=== PATIENT | male | born 1960 | race Caucasian/White ===

== ENCOUNTER 2018-03-12 10:46 | Inpatient (IN) | payer SELFPAY ==
[~2018-03-12] VITALS: Ht 170.2 cm; Wt 124.7 kg
[2018-03-12] MEDS ORDERED: ASPIRIN CHEWABLE 81 MG TABLET. PO ONE (11:00)
--- NOTE | 2018-03-12 11:12 | PHYS DOC ---
Adult General Chief Complaint Chief Complaint: CHEST PAIN HPI HPI Patient is a 57 year old male with a history of diabetes and hypertension presents to the ED complaining of left-sided chest pain 30 minutes ago. Patient is a sales and marketing manager and states he started to have left chest pain that radiated down his left arm. Describes pain as sharp. Rates the pain as 6 out of 10. States the pain comes and goes. Denies shortness of breath, headache, syncope, vision changes, abdominal pain, diarrhea or nausea/vomiting. Review of Systems Review of Systems Constitutional: Denies fever or chills [] Eyes: Denies change in visual acuity, redness, or eye pain [] HENT: Denies nasal congestion or sore throat [] Respiratory: Denies cough or shortness of breath [] Cardiovascular: No additional information not addressed in HPI [] GI: Denies abdominal pain, nausea, vomiting, bloody stools or diarrhea [] : Denies dysuria or hematuria [] Musculoskeletal: Denies back pain or joint pain [] Integument: Denies rash or skin lesions [] Neurologic: Denies headache, focal weakness or sensory changes [] All other systems were reviewed and found to be within normal limits, except as documented in this note. Current Medications Current Medications Current Medications Medications (Trade) Dose Ordered Sig/Genaro Start Time Stop Time Status Last Admin Dose Admin Acetaminophen (Tylenol) 650 mg PRN Q4HRS PRN 03/12/18 14:00 03/13/18 13:59 Aspirin (Children'S Aspirin) 324 mg 1X ONCE 03/12/18 11:00 03/12/18 11:17 DC 03/12/18 11:48 324 MG Fentanyl Citrate (Fentanyl 2ml Vial) 50 mcg PRN Q1HR PRN 03/12/18 14:00 03/13/18 13:59 Info (CONTRAST GIVEN -- Rx MONITORING) 1 each PRN DAILY PRN 03/12/18 14:15 03/14/18 14:14 Iohexol (Omnipaque 300 Mg/ml) 75 ml 1X ONCE 03/12/18 14:00 03/12/18 14:04 DC 03/12/18 14:00 75 ML Morphine Sulfate (Morphine Sulfate) 4 mg 1X ONCE 03/12/18 12:00 03/12/18 12:01 DC 03/12/18 11:59 4 MG Ondansetron HCl (Zofran) 4 mg PRN Q8HRS PRN 03/12/18 14:00 03/13/18 13:59 Sodium Chloride 1,000 ml @ 1,000 mls/hr 1X ONCE 03/12/18 13:45 03/12/18 14:44 DC 03/12/18 15:22 1,000 MLS/HR Allergies Allergies Allergies Coded Allergies Type Severity Reaction Last Updated Verified No Known Drug Allergies 03/12/18 No Physical Exam Physical Exam Constitutional: Well developed, well nourished, no acute distress, non-toxic appearance. [] HENT: Normocephalic, atraumatic, oropharynx moist Eyes: PERRLA, EOMI, conjunctiva normal, no discharge. [] Neck: Normal range of motion, no tenderness, supple, no stridor. [] Cardiovascular:Heart rate regular rhythm, no murmur [] Lungs & Thorax: Bilateral breath sounds clear to auscultation [] Abdomen: Bowel sounds normal, soft, no tenderness, no masses, no pulsatile masses. [] Skin: Warm, dry, no erythema, no rash. [] Back: No tenderness, no CVA tenderness. [] Extremities: No tenderness, no cyanosis, no clubbing, ROM intact, no edema. [] Neurologic: Alert and oriented X 3, normal motor function, normal sensory function, no focal deficits noted. [] Psychologic: Affect normal, judgement normal, mood normal. [] Current Patient Data Vital Signs Vital Signs Date Time Temp Pulse Resp B/P (MAP) Pulse Ox O2 Delivery O2 Flow Rate FiO2 03/12/18 14:15 84 18 123/74 (90) 94 Room Air 03/12/18 10:46 98.3 98.3 Lab Values Laboratory Tests Test 03/12/18 11:00 White Blood Count 7.4 x10^3/uL (4.0-11.0) Red Blood Count 5.10 x10^6/uL (4.30-5.70) Hemoglobin 15.0 g/dL (13.0-17.5) Hematocrit 43.3 % (39.0-53.0) Mean Corpuscular Volume 85 fL (79-100) Mean Corpuscular Hemoglobin 30 pg (25-35) Mean Corpuscular Hemoglobin Concent 35 g/dL (31-37) Red Cell Distribution Width 14.3 % (11.5-14.5) Platelet Count 245 x10^3/uL (140-400) Neutrophils (%) (Auto) 56 % (31-73) Lymphocytes (%) (Auto) 34 % (24-48) Monocytes (%) (Auto) 9 % (0-9) Eosinophils (%) (Auto) 1 % (0-3) Basophils (%) (Auto) 1 % (0-3) Neutrophils # (Auto) 4.2 x10^3uL (1.8-7.7) Lymphocytes # (Auto) 2.5 x10^3/uL (1.0-4.8) Monocytes # (Auto) 0.6 x10^3/uL (0.0-1.1) Eosinophils # (Auto) 0.1 x10^3/uL (0.0-0.7) Basophils # (Auto) 0.0 x10^3/uL (0.0-0.2) Sodium Level 141 mmol/L (136-145) Potassium Level 4.1 mmol/L (3.5-5.1) Chloride Level 103 mmol/L (98-107) Carbon Dioxide Level 26 mmol/L (21-32) Anion Gap 12 (6-14) Blood Urea Nitrogen 13 mg/dL (8-26) Creatinine 0.7 mg/dL (0.7-1.3) Estimated GFR (Cockcroft-Gault) 116.7 BUN/Creatinine Ratio 19 (6-20) Glucose Level 178 mg/dL (70-99) H Calcium Level 9.9 mg/dL (8.5-10.1) Total Bilirubin 1.1 mg/dL (0.2-1.0) H Aspartate Amino Transferase (AST) 20 U/L (15-37) Alanine Aminotransferase (ALT) 37 U/L (16-63) Alkaline Phosphatase 55 U/L (46-116) Troponin I Quantitative < 0.017 ng/mL (0.000-0.055) Total Protein 7.3 g/dL (6.4-8.2) Albumin 4.2 g/dL (3.4-5.0) Albumin/Globulin Ratio 1.4 (1.0-1.7) Lipase 2121 U/L (73-393) H Laboratory Tests 03/12/18 11:00 Laboratory Tests 03/12/18 11:00 EKG EKG []EKG shows Sinus Rhythm at 87 BPM. No STEMI. Radiology/Procedures Radiology/Procedures CT ABD PELV W/ IV CONTRST ONLY Indication: UPPER ABD PAIN, [id number] 75ML, NO PRIORS Exposure: One or more of the following individualized dose reduction techniques were utilized for this examination: 1. Automated exposure control 2. Adjustment of the mA and/or kV according to patient size 3. Use of iterative reconstruction technique. Comparison: None are available. Contrast: Intravenous contrast was given. No oral contrast per request. FINDINGS: Lower thorax: Small noncalcified nodule right lung base measures 4 mm. Liver: Unremarkable Spleen: Unremarkable Pancreas: Unremarkable Adrenals: Small calcification of the right adrenal. No mass. Kidneys: No obvious mass. Minimal stranding within the perinephric fat bilaterally. Urinary tracts: No hydronephrosis. Gallbladder: No calcified stone Lymph nodes: No significant enlargement Vessels: * Aorta: Mildly calcified, no aneurysm. * Major aortic branches: Grossly patent. * Portal venous: Patent GI tract: No evidence of bowel obstruction. Colonic diverticulosis is identified. No evidence of acute colitis. Appendix is normal. Reproductive organs:No evidence of mass. Urinary bladder: Distended with urine, measuring 17 cm Peritoneum: No evidence of pneumoperitoneum. No free fluid. Abdominal wall:Unremarkable Spine: Mild degenerative spondylosis. At least mild multilevel spinal canal narrowing, may be a congenital component contributing. Bones: Enthesophytes identified about the skeletal pelvis. IMPRESSION: 1. Urinary bladder distention. 2. Small 4 mm noncalcified pulmonary nodule in the right lung base, as per Fleischner Society recommendations no follow-up is necessary if low risk, but consider follow-up CT chest in 12 months if high risk. 3. Degenerative spondylosis with stenosis. 4. Minimal perinephric stranding, can be associated with mild inflammation versus chronic medical renal disease. The kidneys themselves appear intrinsically unremarkable.[] PROCEDURE: PORTABLE CHEST 1V Examination: PORTABLE CHEST 1V History: CHEST PAIN X TODAY Comparison/Correlation: None Findings: Portable frontal view chest was obtained. Heart size and pulmonary vasculature are normal. No infiltrate or pleural effusion. Minimal left basilar atelectasis or scarring may present. No pneumothorax. Pulmonary hyperinflation noted. Somewhat advanced acromioclavicular joint degenerative change region noted. Impression: Pulmonary hyperinflation suggestive of COPD. No definite infiltrate. Course & Med Decision Making Course & Med Decision Making Pertinent Labs and Imaging studies reviewed. (See chart for details) []Discussed case with patients PCP, Dr. Be. Requests CT of abdomen. Agrees to admission and further management of patient. Patient stable for admission. Dragon Disclaimer Dragon Disclaimer This electronic medical record was generated, in whole or in part, using a voice recognition dictation system. Departure Departure Impression: Primary Impression: Chest pain Additional Impression: Elevated lipase Disposition: ADMITTED INPATIENT Admitting Physician: Sincere Be Condition: STABLE Problem Qualifiers GAUDENCIO CAPELLAN Mar 12, 2018 11:12
[2018-03-12 11:16] LABS: BASO % 1 % (0-3); EOS # 0.1 x10^3/uL (0.0-0.7); EOS % 1 % (0-3); HEMATOCRIT 43.3 % (39.0-53.0); LYMPH # 2.5 x10^3/uL (1.0-4.8); LYMPH % 34 % (24-48); MEAN CORPUSCULAR HEMOGLOBIN 30 pg (25-35); MEAN CORPUSCULAR HGB CONC 35 g/dL (31-37); MEAN CORPUSCULAR VOLUME 85 fL (79-100); MONO # 0.6 x10^3/uL (0.0-1.1); MONO % 9 % (0-9); NEUT # 4.2 x10^3uL (1.8-7.7); NEUT % 56 % (31-73); PLATELET COUNT 245 x10^3/uL (140-400); RED CELL DISTRIBUTION WIDTH 14.3 % (11.5-14.5); WHITE BLOOD COUNT 7.4 x10^3/uL (4.0-11.0)
--- NOTE | 2018-03-12 11:16 | EKG ---
[facility] [address] [place] [address] Test Date: 2018-03-12 Test Time: 10:53:44 Pat Name: FLETCHER ALBA Department: Room: Gender: M Miner Assistant: : 1960 Requested By: GAUDENCIO CAPELLAN Order Number: [id number] Reading MD: Measurements Intervals [place] Rate: 87 P: 54 WA: 170 QRS: 82 QRSD: 94 T: 36 QT: 314 QTc: 383 Interpretive Statements SINUS RHYTHM LOW LIMB LEAD VOLTAGE QRS(T) CONTOUR ABNORMALITY CONSISTENT WITH ANTEROSEPTAL INFARCT PROBABLY OLD ABNORMAL ECG RI6.01 No previous ECG available for comparison
[2018-03-12 11:28] LABS: CALCIUM 9.9 mg/dL (8.5-10.1); CREATININE 0.7 mg/dL (0.7-1.3); GFR 116.7; POTASSIUM 4.1 mmol/L (3.5-5.1)
[2018-03-12 11:35] LABS: ALBUMIN 4.2 g/dL (3.4-5.0); ALBUMIN/GLOBULIN RATIO 1.4 (1.0-1.7); TOTAL BILIRUBIN 1.1 mg/dL (0.2-1.0); TOTAL PROTEIN 7.3 g/dL (6.4-8.2)
[2018-03-12] MEDS ORDERED: ONDANSETRON PF 4 MG/2 ML VIAL. ONE (11:55)
[2018-03-12] MEDS ORDERED: ONDANSETRON PF 4 MG/2 ML VIAL. IV ONE (12:00)
[2018-03-12] MEDS ORDERED: MORPHINE SULFATE 4 MG/ML VIAL. IV ONE (12:00)
--- NOTE | 2018-03-12 12:17 | RAD ---
Examination: PORTABLE CHEST 1V History: CHEST PAIN X TODAY Comparison/Correlation: None Findings: Portable frontal view chest was obtained. Heart size and pulmonary vasculature are normal. No infiltrate or pleural effusion. Minimal left basilar atelectasis or scarring may present. No pneumothorax. Pulmonary hyperinflation noted. Somewhat advanced acromioclavicular joint degenerative change region noted. Impression: Pulmonary hyperinflation suggestive of COPD. No definite infiltrate. Electronically signed by: Cuate Moreira MD (03/12/2018 12:13 PM) [id number]
--- NOTE | 2018-03-12 13:11 | RAD ---
Examination: ABDOMEN LTD History: DX: Eval GB-Nausea and vomiting IMP: patient obese limiting study-fatty and slightly enlarged liver; GB negative; CBD WNL Comparison/Correlation: None Findings: Fatty infiltration of the liver noted. Liver length of 18.9 cm noted. Common bile duct measures 0.3 cm diameter. No evidence of cholelithiasis or findings of cholecystitis. Gallbladder wall thickness is normal. Right kidney measures 10.3 cm x 5 cm x 5.1 cm. No right hydronephrosis. Right renal contour is normal. Inferior vena cava was only partially seen. Partially visualized inferior vena cava is unremarkable at the level of the liver. Portal venous color Doppler flow is normal. No upper abdominal ascites. Proximal pancreas is partially visualized. Pancreas is mostly obscured by bowel gas. Impression: Mild fatty infiltration of the liver. Borderline liver size. Gallbladder is unremarkable with no evidence of cholelithiasis or findings to suggest cholecystitis. Electronically signed by: Cuate Moreira MD (03/12/2018 1:08 PM) [id number]
[2018-03-12] MEDS ORDERED: IV NORMAL SALINE 1000ML BAG 1,000 ML IV ONE (13:45)
[2018-03-12] MEDS ORDERED: IOHEXOL 300 MG/ML 100ML VIAL. IV ONE (14:00)
[2018-03-12] MEDS ORDERED: ONDANSETRON PF 4 MG/2 ML VIAL. IV PRN (14:00)
[2018-03-12] MEDS ORDERED: fentaNYL PF VIAL 100 MCG/2 ML VIAL IV PRN (14:00)
[2018-03-12] MEDS ORDERED: ACETAMINOPHEN 325 MG TABLET. PO PRN (14:00)
[2018-03-12] MEDS ORDERED: CONTRAST GIVEN. MC PRN (14:15)
--- NOTE | 2018-03-12 15:14 | RAD ---
CT ABD PELV W/ IV CONTRST ONLY Indication: UPPER ABD PAIN, [id number] 75ML, NO PRIORS Exposure: One or more of the following individualized dose reduction techniques were utilized for this examination: 1. Automated exposure control 2. Adjustment of the mA and/or kV according to patient size 3. Use of iterative reconstruction technique. Comparison: None are available. Contrast: Intravenous contrast was given. No oral contrast per request. FINDINGS: Lower thorax: Small noncalcified nodule right lung base measures 4 mm. Liver: Unremarkable Spleen: Unremarkable Pancreas: Unremarkable Adrenals: Small calcification of the right adrenal. No mass. Kidneys: No obvious mass. Minimal stranding within the perinephric fat bilaterally. Urinary tracts: No hydronephrosis. Gallbladder: No calcified stone Lymph nodes: No significant enlargement Vessels: * Aorta: Mildly calcified, no aneurysm. * Major aortic branches: Grossly patent. * Portal venous: Patent GI tract: No evidence of bowel obstruction. Colonic diverticulosis is identified. No evidence of acute colitis. Appendix is normal. Reproductive organs:No evidence of mass. Urinary bladder: Distended with urine, measuring 17 cm Peritoneum: No evidence of pneumoperitoneum. No free fluid. Abdominal wall:Unremarkable Spine: Mild degenerative spondylosis. At least mild multilevel spinal canal narrowing, may be a congenital component contributing. Bones: Enthesophytes identified about the skeletal pelvis. IMPRESSION: 1. Urinary bladder distention. 2. Small 4 mm noncalcified pulmonary nodule in the right lung base, as per Fleischner Society recommendations no follow-up is necessary if low risk, but consider follow-up CT chest in 12 months if high risk. 3. Degenerative spondylosis with stenosis. 4. Minimal perinephric stranding, can be associated with mild inflammation versus chronic medical renal disease. The kidneys themselves appear intrinsically unremarkable. Electronically signed by: Yo Dhillon MD (03/12/2018 3:10 PM) [id number]
--- NOTE | 2018-03-12 15:47 | PDOC2 ---
CARDIAC CONSULT DATE OF CONSULT Date of Consult DATE: 03/12/18 TIME: 15:43 REASON FOR CONSULT Reason for Consult: Chest pain REFERRING PHYSICIAN Referring Physician: Britney SOURCE Source: Chart review, Patient HISTORY OF PRESENT ILLNESS HISTORY OF PRESENT ILLNESS This is a pleasant 57 yo male admitted for complains of chest pain. Reports that he drank about 6-12 beers last Sunday but no symptoms associated with that. He did have 1 bout of vomiting and loose stool yesterday Sunday but no further recurrences. Verbalized no exertional CP but does have some SOA with exertion but not significant compared to his baseline. He continues to smoke tobacco and no routine exercises. Today at work he started having sharp piercing pain to left chest. He had some tingling to his left arm and fingers and was SOA and diaphoretic. His symptoms finally got better after he received morphine and 4 baby ASA. He does have DM2, HTN, HLP and compliant with his medications. Reports of no cardiac workup in the past and has never seen a countersinker balance screw hole. Denies routine NSAIDs, recent falls, injury. No prior VTE and denies any arrhythmias or murmur PAST MEDICAL HISTORY Cardiovascular: HTN, Hyperlipidemia Pulmonary: No pertinent hx CENTRAL NERVOUS SYSTEM: Other (No pertinent history) GI: No pertinent hx Heme/Onc: No pertinent hx Psych: No pertinent hx Musculoskeletal: Osteoarthritis, Other (obesity) Infectious disease: No pertinent hx ENT: No pertinent hx Renal/: No pertinent hx Endocrine: Diabetes (2) Dermatology: No pertinent hx PAST SURGICAL HISTORY Past Surgical History: Hernia Repair (ventral) FAMILY HISTORY Family History: Coronary Artery Disease (father and mother in their 50s) SOCIAL HISTORY Smoke: <1 pack per day ALCOHOL: other (weekly binge) Drugs: None Lives: with Family CURRENT MEDICATIONS CURRENT MEDICATIONS Current Medications Medications (Trade) Dose Ordered Sig/Genaro Route PRN Reason Start Time Stop Time Status Last Admin Dose Admin Aspirin (Children'S Aspirin) 324 mg 1X ONCE PO 03/12/18 11:00 03/12/18 11:17 DC 03/12/18 11:48 Morphine Sulfate (Morphine Sulfate) 4 mg 1X ONCE IV 03/12/18 12:00 03/12/18 12:01 DC 03/12/18 11:59 Ondansetron HCl (Zofran) 4 mg 1X ONCE IV 03/12/18 12:00 03/12/18 12:01 DC 03/12/18 11:59 Sodium Chloride 1,000 ml @ 1,000 mls/hr 1X ONCE IV 03/12/18 13:45 03/12/18 14:44 DC 03/12/18 15:22 Iohexol (Omnipaque 300 Mg/ml) 75 ml 1X ONCE IV 03/12/18 14:00 03/12/18 14:04 DC 03/12/18 14:00 ALLERGIES ALLERGIES: Coded Allergies: No Known Drug Allergies (Unverified , 03/12/18) ROS Review of System 14 point ROS evaluated with pertinent positives noted per HPI PHYSICAL EXAM General: Alert, Oriented X3, Cooperative, No acute distress HEENT: Atraumatic, Mucous membr. moist/pink Lungs: Clear to auscultation, Normal air movement Heart: Regular rate (SR) Abdomen: Soft, No tenderness, Other (obses) Extremities: No cyanosis, No edema Skin: No breakdown, No significant lesion Neuro: Normal speech, Sensation intact Psych/Mental Status: Mental status NL, Mood NL MUSCULOSKELETAL: Osteoarthritic changes both hands VITALS VITALS Vital Signs Date Time Temp Pulse Resp B/P (MAP) Pulse Ox O2 Delivery O2 Flow Rate FiO2 03/12/18 15:15 77 18 113/72 (86) 95 Room Air 03/12/18 10:46 98.3 98.3 LABS Lab: Laboratory Tests Test 03/12/18 11:00 White Blood Count 7.4 x10^3/uL (4.0-11.0) Red Blood Count 5.10 x10^6/uL (4.30-5.70) Hemoglobin 15.0 g/dL (13.0-17.5) Hematocrit 43.3 % (39.0-53.0) Mean Corpuscular Volume 85 fL (79-100) Mean Corpuscular Hemoglobin 30 pg (25-35) Mean Corpuscular Hemoglobin Concent 35 g/dL (31-37) Red Cell Distribution Width 14.3 % (11.5-14.5) Platelet Count 245 x10^3/uL (140-400) Neutrophils (%) (Auto) 56 % (31-73) Lymphocytes (%) (Auto) 34 % (24-48) Monocytes (%) (Auto) 9 % (0-9) Eosinophils (%) (Auto) 1 % (0-3) Basophils (%) (Auto) 1 % (0-3) Neutrophils # (Auto) 4.2 x10^3uL (1.8-7.7) Lymphocytes # (Auto) 2.5 x10^3/uL (1.0-4.8) Monocytes # (Auto) 0.6 x10^3/uL (0.0-1.1) Eosinophils # (Auto) 0.1 x10^3/uL (0.0-0.7) Basophils # (Auto) 0.0 x10^3/uL (0.0-0.2) Sodium Level 141 mmol/L (136-145) Potassium Level 4.1 mmol/L (3.5-5.1) Chloride Level 103 mmol/L (98-107) Carbon Dioxide Level 26 mmol/L (21-32) Anion Gap 12 (6-14) Blood Urea Nitrogen 13 mg/dL (8-26) Creatinine 0.7 mg/dL (0.7-1.3) Estimated GFR (Cockcroft-Gault) 116.7 BUN/Creatinine Ratio 19 (6-20) Glucose Level 178 mg/dL (70-99) Calcium Level 9.9 mg/dL (8.5-10.1) Total Bilirubin 1.1 mg/dL (0.2-1.0) Aspartate Amino Transf (AST/SGOT) 20 U/L (15-37) Alanine Aminotransferase (ALT/SGPT) 37 U/L (16-63) Alkaline Phosphatase 55 U/L (46-116) Troponin I Quantitative < 0.017 ng/mL (0.000-0.055) Total Protein 7.3 g/dL (6.4-8.2) Albumin 4.2 g/dL (3.4-5.0) Albumin/Globulin Ratio 1.4 (1.0-1.7) Lipase 2121 U/L (73-393) ASSESSMENT/PLAN ASSESSMENT/PLAN 1. Chest pain: UA features. Initial trop nml. EKG SR with subtle septal changes with poor R wave progression 2. Elevated lipase: 2100s, Per PCP. No organomegaly, GB unremarkable. 3. Undiagnosed COPD with continued tobaccoism: defer to PCP 4. Morbid obesity with suspected BEVERLY 5. Fatty liver disease 6. Binge alcohol use: weekly 6-12 beers in one sitting. Last event Sunday 7. HTN: controlled 8. DM2/HLP 9. Murmur: suspect MR and . Recommendations 1. Trend troponin, TTE. 2. TSH, UA. Lipids in AM. 3. NPO p MN. Ischemic workup tomorrow. Await w/u trend overnight. Discussed with pt. 4. ASA. restart home lipitor. 5. Wt loss. outpt BEVERLY workup, Smoking cessation. Avoid ETOH binging. MANDA DUNCAN POWDERED [employer]GAR SUPERVISOR Mar 12, 2018 15:47
[2018-03-12 16:43] LABS: BILIRUBIN,URINE NEGATIVE (NEG); CLARITY,URINE CLEAR; COLOR,URINE YELLOW; NITRITE,URINE NEGATIVE (NEG); PROTEIN,URINE NEGATIVE (NEG-TRACE); UROBILINOGEN,URINE 0.2 mg/dL (0.2 mg/dL)
[2018-03-12 16:58] LABS: BACTERIA,URINE 0 /HPF (0-FEW); RBC,URINE RARE /HPF (0-2); WBC,URINE 0 /HPF (0-4)
[2018-03-12 19:00] VITALS: BP 125/68
[2018-03-12] MEDS ORDERED: AMLO5TAB7 PO (20:49)
[2018-03-12] MEDS ORDERED: ATOR20TA58 PO (20:49)
[2018-03-12] MEDS ORDERED: AMIT10TA PO (20:49)
[2018-03-12] MEDS ORDERED: METF500T16 PO (20:49)
[2018-03-12] MEDS ORDERED: LISI-334 PO (20:49)
[2018-03-12 23:00] VITALS: BP 119/60
[2018-03-13 03:00] VITALS: BP 116/69
[2018-03-13 05:41] LABS: BASO % 0 % (0-3); EOS # 0.1 x10^3/uL (0.0-0.7); EOS % 2 % (0-3); HEMOGLOBIN 13.9 g/dL (13.0-17.5); LYMPH # 2.5 x10^3/uL (1.0-4.8); LYMPH % 39 % (24-48); MEAN CORPUSCULAR HEMOGLOBIN 29 pg (25-35); MEAN CORPUSCULAR HGB CONC 34 g/dL (31-37); MEAN CORPUSCULAR VOLUME 86 fL (79-100); MONO # 0.6 x10^3/uL (0.0-1.1); MONO % 10 % (0-9); NEUT # 3.1 x10^3uL (1.8-7.7); NEUT % 49 % (31-73); PLATELET COUNT 223 x10^3/uL (140-400); RED BLOOD COUNT 4.77 x10^6/uL (4.30-5.70); RED CELL DISTRIBUTION WIDTH 14.7 % (11.5-14.5); WHITE BLOOD COUNT 6.3 x10^3/uL (4.0-11.0)
[2018-03-13 06:06] LABS: ALBUMIN 3.6 g/dL (3.4-5.0); ALBUMIN/GLOBULIN RATIO 1.2 (1.0-1.7); CALCIUM 8.8 mg/dL (8.5-10.1); CREATININE 0.8 mg/dL (0.7-1.3); MAGNESIUM 1.9 mg/dL (1.8-2.4); POTASSIUM 4.1 mmol/L (3.5-5.1); TOTAL PROTEIN 6.6 g/dL (6.4-8.2)
[2018-03-13 06:07] LABS: CHOLESTEROL/HDL RATIO 3.3
[2018-03-13 07:00] VITALS: BP 132/70
--- NOTE | 2018-03-13 08:16 | PDOC ---
GENERAL General: see dictated H&P. VITAL SIGNS Vital Signs: Vital Signs Date Time Temp Pulse Resp B/P (MAP) Pulse Ox O2 Delivery O2 Flow Rate FiO2 03/13/18 07:00 98.2 68 20 132/70 (90) 91 Room Air 98.2 I & O I & O Intake and Output 03/13/18 07:00 Intake Total 960 ml Balance 960 ml Intake Oral 960 ml # Voids 4 ALLERGIES Allergies: Allergies Coded Allergies Type Severity Reaction Last Updated Verified No Known Drug Allergies 03/12/18 No MEDS Medications: Current Medications Medications (Trade) Dose Ordered Sig/Genaro Start Time Stop Time Status Last Admin Dose Admin Acetaminophen (Tylenol) 650 mg PRN Q4HRS PRN 03/12/18 14:00 03/13/18 13:59 Aspirin (Children'S Aspirin) 324 mg 1X ONCE 03/12/18 11:00 03/12/18 11:17 DC 03/12/18 11:48 324 MG Fentanyl Citrate (Fentanyl 2ml Vial) 50 mcg PRN Q1HR PRN 03/12/18 14:00 03/13/18 13:59 Info (CONTRAST GIVEN -- Rx MONITORING) 1 each PRN DAILY PRN 03/12/18 14:15 03/14/18 14:14 Iohexol (Omnipaque 300 Mg/ml) 75 ml 1X ONCE 03/12/18 14:00 03/12/18 14:04 DC 03/12/18 14:00 75 ML Morphine Sulfate (Morphine Sulfate) 4 mg 1X ONCE 03/12/18 12:00 03/12/18 12:01 DC 03/12/18 11:59 4 MG Ondansetron HCl (Zofran) 4 mg PRN Q8HRS PRN 03/12/18 14:00 03/13/18 13:59 Sodium Chloride 1,000 ml @ 1,000 mls/hr 1X ONCE 03/12/18 13:45 03/12/18 14:44 DC 03/12/18 15:22 1,000 MLS/HR LAB Lab: Laboratory Tests Test 03/12/18 11:00 03/12/18 16:31 03/12/18 17:07 03/12/18 19:30 White Blood Count 7.4 x10^3/uL (4.0-11.0) Red Blood Count 5.10 x10^6/uL (4.30-5.70) Hemoglobin 15.0 g/dL (13.0-17.5) Hematocrit 43.3 % (39.0-53.0) Mean Corpuscular Volume 85 fL (79-100) Mean Corpuscular Hemoglobin 30 pg (25-35) Mean Corpuscular Hemoglobin Concent 35 g/dL (31-37) Red Cell Distribution Width 14.3 % (11.5-14.5) Platelet Count 245 x10^3/uL (140-400) Neutrophils (%) (Auto) 56 % (31-73) Lymphocytes (%) (Auto) 34 % (24-48) Monocytes (%) (Auto) 9 % (0-9) Eosinophils (%) (Auto) 1 % (0-3) Basophils (%) (Auto) 1 % (0-3) Neutrophils # (Auto) 4.2 x10^3uL (1.8-7.7) Lymphocytes # (Auto) 2.5 x10^3/uL (1.0-4.8) Monocytes # (Auto) 0.6 x10^3/uL (0.0-1.1) Eosinophils # (Auto) 0.1 x10^3/uL (0.0-0.7) Basophils # (Auto) 0.0 x10^3/uL (0.0-0.2) Sodium Level 141 mmol/L (136-145) Potassium Level 4.1 mmol/L (3.5-5.1) Chloride Level 103 mmol/L (98-107) Carbon Dioxide Level 26 mmol/L (21-32) Anion Gap 12 (6-14) Blood Urea Nitrogen 13 mg/dL (8-26) Creatinine 0.7 mg/dL (0.7-1.3) Estimated GFR (Cockcroft-Gault) 116.7 BUN/Creatinine Ratio 19 (6-20) Glucose Level 178 mg/dL (70-99) Calcium Level 9.9 mg/dL (8.5-10.1) Total Bilirubin 1.1 mg/dL (0.2-1.0) Aspartate Amino Transf (AST/SGOT) 20 U/L (15-37) Alanine Aminotransferase (ALT/SGPT) 37 U/L (16-63) Alkaline Phosphatase 55 U/L (46-116) Troponin I Quantitative < 0.017 ng/mL (0.000-0.055) < 0.017 ng/mL (0.000-0.055) Total Protein 7.3 g/dL (6.4-8.2) Albumin 4.2 g/dL (3.4-5.0) Albumin/Globulin Ratio 1.4 (1.0-1.7) Lipase 2121 U/L (73-393) Thyroid Stimulating Hormone (TSH) 4.228 uIU/mL (0.358-3.74) Urine Collection Type Unknown Urine Color Yellow Urine Clarity Clear Urine pH 5.0 Urine Specific [place] >=1.030 Urine Protein Negative mg/dL (NEG-TRACE) Urine Glucose (UA) Negative mg/dL (NEG) Urine Ketones (Stick) Negative mg/dL (NEG) Urine Blood Negative (NEG) Urine Nitrite Negative (NEG) Urine Bilirubin Negative (NEG) Urine Urobilinogen Dipstick 0.2 mg/dL (0.2 mg/dL) Urine Leukocyte Esterase Negative (NEG) Urine RBC Rare /HPF (0-2) Urine WBC 0 /HPF (0-4) Urine Bacteria 0 /HPF (0-FEW) Glucose (Fingerstick) 107 mg/dL (70-99) Test 03/12/18 20:42 03/13/18 05:10 03/13/18 07:00 Glucose (Fingerstick) 246 mg/dL (70-99) 185 mg/dL (70-99) White Blood Count 6.3 x10^3/uL (4.0-11.0) Red Blood Count 4.77 x10^6/uL (4.30-5.70) Hemoglobin 13.9 g/dL (13.0-17.5) Hematocrit 41.0 % (39.0-53.0) Mean Corpuscular Volume 86 fL (79-100) Mean Corpuscular Hemoglobin 29 pg (25-35) Mean Corpuscular Hemoglobin Concent 34 g/dL (31-37) Red Cell Distribution Width 14.7 % (11.5-14.5) Platelet Count 223 x10^3/uL (140-400) Neutrophils (%) (Auto) 49 % (31-73) Lymphocytes (%) (Auto) 39 % (24-48) Monocytes (%) (Auto) 10 % (0-9) Eosinophils (%) (Auto) 2 % (0-3) Basophils (%) (Auto) 0 % (0-3) Neutrophils # (Auto) 3.1 x10^3uL (1.8-7.7) Lymphocytes # (Auto) 2.5 x10^3/uL (1.0-4.8) Monocytes # (Auto) 0.6 x10^3/uL (0.0-1.1) Eosinophils # (Auto) 0.1 x10^3/uL (0.0-0.7) Basophils # (Auto) 0.0 x10^3/uL (0.0-0.2) Sodium Level 142 mmol/L (136-145) Potassium Level 4.1 mmol/L (3.5-5.1) Chloride Level 104 mmol/L (98-107) Carbon Dioxide Level 29 mmol/L (21-32) Anion Gap 9 (6-14) Blood Urea Nitrogen 12 mg/dL (8-26) Creatinine 0.8 mg/dL (0.7-1.3) Estimated GFR (Cockcroft-Gault) 100.0 BUN/Creatinine Ratio 15 (6-20) Glucose Level 154 mg/dL (70-99) Calcium Level 8.8 mg/dL (8.5-10.1) Magnesium Level 1.9 mg/dL (1.8-2.4) Total Bilirubin 1.0 mg/dL (0.2-1.0) Aspartate Amino Transf (AST/SGOT) 17 U/L (15-37) Alanine Aminotransferase (ALT/SGPT) 35 U/L (16-63) Alkaline Phosphatase 51 U/L (46-116) Troponin I Quantitative < 0.017 ng/mL (0.000-0.055) Total Protein 6.6 g/dL (6.4-8.2) Albumin 3.6 g/dL (3.4-5.0) Albumin/Globulin Ratio 1.2 (1.0-1.7) Triglycerides Level 72 mg/dL (0-150) Cholesterol Level 140 mg/dL (0-200) LDL Cholesterol, Calculated 84 mg/dL (0-100) VLDL Cholesterol, Calculated 14 mg/dL (0-40) Non-HDL Cholesterol Calculated 98 mg/dL (0-129) HDL Cholesterol 42 mg/dL (40-60) Cholesterol/HDL Ratio 3.3 Lipase 1407 U/L (73-393) BELINDA NELSON MD Mar 13, 2018 08:16
[2018-03-13] MEDS ORDERED: LISINOPRIL 20 MG TABLET PO SCH (09:00)
[2018-03-13] MEDS ORDERED: amLODIPine BESYLATE 5 MG TABLET PO SCH (09:00)
--- NOTE | 2018-03-13 09:24 | CARD ---
MR#: [id number] Date of Study: 03/13/2018 Ordering Physician: MANDA DUNCAN, Referring Physician: BELINDA NELSON Tech: Priscila Hill [facility] APPROVED REPORT EXAM: Two-dimensional and M-mode echocardiogram with Doppler and color Doppler. Other Information Quality : Technically LimitedHR: 74bpm Rhythm : NSRTechnically limited study due to body habitus and smoking. INDICATION Chest Pain 2D DIMENSIONS RVDd2.7 (2.9-3.5cm)IVSd1.2 (0.7-1.1cm) Aortic Root(2D)3.3 (2.0-3.7cm)LVDd5.4 (3.9-5.9cm) LVOT Diameter2.0 (1.8-2.4cm)PWd1.2 (0.7-1.1cm) LVDs3.5 (2.5-4.0cm)FS (%) 35.9 % SV92.2 mlLVEF(%)64.9 (>50%) M-Mode DIMENSIONS Left Atrium(MM)4.12 (2.5-4.0cm)Aortic Root3.12 (2.2-3.7cm) Aortic Valve AoV Peak Kennedy.221.0cm/sAoV VTI46.7cm AO Peak GR.19.0mmHgLVOT Peak Kennedy.134.4cm/s LVOT VTI 30.09cmAO Mean GR.12mmHg JOE (VMAX)1.54bf4EUY (VTI)2.05cm2 Mitral Valve MV E Daoivzaw84.2cm/sMV DECEL [id number] MV A Nycpxyyt18.2cm/sMV UAK62fs E/A Ratio1.2MVA (PHT)3.03cm2 TDI E/Lateral E'9.8E/Medial E'9.6 Pulmonary Valve PV Peak Jenojrab87.0cm/sPV Peak Grad.3mmHg Tricuspid Valve TR P. Azrcject273nv/sRAP NHTFINME1xqTb TR Peak Gr.49jdRkMYTR61veCd LEFT VENTRICLE The left ventricle is normal size. There is mild concentric left ventricular hypertrophy. The left ve ntricular systolic function is normal. The Ejection Fraction is 55-60%. There is normal LV segmental wall motion. The left ventricular diastolic function and filling is normal for age. RIGHT VENTRICLE The right ventricle is normal size. There is normal right ventricular wall thickness. The right ventr icular systolic function is normal. ATRIA The left atrium is mildly dilated. The right atrium is mildly dilated. The interatrial septum is inta ct with no evidence for an atrial septal defect or patent foramen ovale as noted on 2-D or Doppler im aging. AORTIC VALVE The aortic valve is mildly thickened. The aortic valve is probably trileaflet. Doppler and Color Flow revealed no significant aortic regurgitation. There is mild valvular aortic stenosis. MITRAL VALVE The mitral valve is normal in structure and function. There is no evidence of mitral valve prolapse. There is no mitral valve stenosis. Doppler and Color Flow revealed no mitral valve regurgitation note d. TRICUSPID VALVE The tricuspid valve is normal in structure and function. Doppler and Color Flow revealed trace tricus pid regurgitation. The PA pressure was estimated at 27 mmHg. There is no tricuspid valve prolapse or vegetation. There is no tricuspid valve stenosis. PULMONIC VALVE The pulmonary valve is normal in structure and function. Doppler and Color Flow revealed no pulmonic valvular regurgitation. There is no pulmonic valvular stenosis. GREAT VESSELS The aortic root is normal in size. The ascending aorta is normal in size. PERICARDIAL EFFUSION There is no evidence of significant pericardial effusion. Critical Notification Critical Value: No <Conclusion> Technically difficult study. The left ventricular systolic function is normal. The Ejection Fraction is 55-60%. There is normal LV segmental wall motion. Doppler and Color Flow revealed trace tricuspid regurgitation. The PA pressure was estimated at 27 mmHg. There is no evidence of significant pericardial effusion. Signed by : Solitario Cordero, Electronically Approved : 03/13/2018 09:23:46
[2018-03-13] MEDS ORDERED: REGADENOSON 0.4 MG/5 ML DISP.SYRIN. IV ONE (10:00)
--- NOTE | 2018-03-13 10:27 | HP ---
ADMIT DATE: 03/12/2018 CHIEF COMPLAINT AND HISTORY OF PRESENT ILLNESS: This 57-year-old white male is well known to me. The patient had sudden onset of left-sided chest pain in his upper lateral chest and axillary area on the day of admission while at work. He became diaphoretic and short of breath with it. It lasted up to an hour and was relieved by aspirin and morphine. He does have a strong family history of atherosclerotic heart disease as well as ongoing diabetes and hypertension. He was admitted to rule out, incidentally he was found to have lipase level over 2000. Although his history is not exactly consistent with pancreatitis and imaging done in the Emergency Room reveals a normal-looking pancreas and no evidence of cholelithiasis, his only risk factor for pancreatitis would be that of drinking which he does rarely often going 2-3 weeks between times, but did have 10-12 beers on Sunday night prior to this. PAST MEDICAL HISTORY: Remarkable for diabetes, hypertension, hyperlipidemia. MEDICATIONS: Brought with the patient, listed on the computer and have been addressed. ALLERGIES: He has no known drug allergies. SOCIAL HISTORY: He is a smoker. Again, drinking history is that as above. Does not abuse drugs. FAMILY HISTORY: Strongly positive for atherosclerotic heart disease and diabetes. REVIEW OF SYSTEMS: As mentioned above. PHYSICAL EXAMINATION: GENERAL: He is a well-developed, well-nourished white male in no acute distress by the time of my examination. VITAL SIGNS: Stable. He is afebrile. HEENT: Unremarkable. NECK: Supple, without any thyromegaly. CHEST: Clear to auscultation and percussion. HEART: Regular rate and rhythm without S3, S4 or murmur. There is no chest wall tenderness present. ABDOMEN: Soft, nontender, without hepatosplenomegaly or masses, which is certainly not consistent with his elevated lipase on admission if it were coming from pancreatic source. EXTREMITIES: Without cyanosis, clubbing, edema. NEUROLOGIC: He is intact. Troponin x 2 are negative since admission. Sugars have been anywhere from 107 to 246 since admission. Lipase on admission was 2121, it is 1407 this morning and per his history did receive fluid yesterday. Cardiology has seen him and planning on stress testing this morning, which I agree with. PLAN: We will follow lipase, make him n.p.o. At least for now I am going to ask GI for opinion on this also as I do not believe this is pancreatitis. He should have stress testing today. Otherwise, his regular home meds will be reinstituted and the patient will be monitored, managed and treated appropriately. BELINDA NELSON MD DR: EMMA/tea JOB#: [id number] / [id number]
[2018-03-13 10:55] VITALS: BP 141/73
--- NOTE | 2018-03-13 11:07 | PDOC2 ---
GI CONSULT Reason For Consult: Elevated lipase HPI: HPI: 57 y/o male admitted through ER yesterday w/ chest pain, currently undergoing stress test w/ cardiology. Pain has resolved, but was sharp and left-sided, began at rest, and was associated w/ some SOA. Was found w/ elevated lipase 2120 (now 1407) and we were asked to see for same. Pancreas was unremarkable on CT A/P and GB was normal on US. H/o heavy drinking - used to be daily, now 10-12 beers in one night every 1-2 weeks. Occasional heartburn - was more severe 1-2 years ago, now just takes Tums PRN with improvement. No dysphagia. No n/v. No abd pain. No diarrhea or constipation. Trying to eat more vegetables and has lost 7 pounds intentionally in 8 weeks. No hematochezia or melena. Appetite stable. No previous EGD or colonoscopy. No GB, liver, or pancreas history. PMH: PMH: HTN, HLD, headaches, OA, DM, GERD, fatty liver, ventral hernia repair, vasectomy FH: Family History: Other (grandmother had "colon removed," aunt had pancreatitis) Social History: Smoke: <1 pack per day ALCOHOL: heavy (10-12 beers every 1-2 weeks, used to drink daily/more heavily) Drugs: Other (marijuana and cocaine in the past) ROS: GEN: Denies fevers, chills, sweats HEENT: Denies blurred vision, sore throat CV: +chest pain (resolved) RESP: Denies shortness of air, cough GI: Per HPI : Denies hematuria, dysuria ENDO: +intentional weight loss NEURO: Denies confusion, dizziness MSK: Denies weakness, joint pain/swelling SKIN: Denies jaundice, pruritus Vitals: Vitals: Vital Signs Date Time Temp Pulse Resp B/P (MAP) Pulse Ox O2 Delivery O2 Flow Rate FiO2 03/13/18 10:55 97.8 100 20 141/73 (95) 96 Room Air 97.8 Labs: Labs: Laboratory Tests Test 03/12/18 16:31 03/12/18 17:07 03/12/18 19:30 03/12/18 20:42 Urine Collection Type Unknown Urine Color Yellow Urine Clarity Clear Urine pH 5.0 Urine Specific [place] >=1.030 Urine Protein Negative mg/dL (NEG-TRACE) Urine Glucose (UA) Negative mg/dL (NEG) Urine Ketones (Stick) Negative mg/dL (NEG) Urine Blood Negative (NEG) Urine Nitrite Negative (NEG) Urine Bilirubin Negative (NEG) Urine Urobilinogen Dipstick 0.2 mg/dL (0.2 mg/dL) Urine Leukocyte Esterase Negative (NEG) Urine RBC Rare /HPF (0-2) Urine WBC 0 /HPF (0-4) Urine Bacteria 0 /HPF (0-FEW) Glucose (Fingerstick) 107 mg/dL (70-99) 246 mg/dL (70-99) Troponin I Quantitative < 0.017 ng/mL (0.000-0.055) Test 03/13/18 05:10 03/13/18 07:00 White Blood Count 6.3 x10^3/uL (4.0-11.0) Red Blood Count 4.77 x10^6/uL (4.30-5.70) Hemoglobin 13.9 g/dL (13.0-17.5) Hematocrit 41.0 % (39.0-53.0) Mean Corpuscular Volume 86 fL (79-100) Mean Corpuscular Hemoglobin 29 pg (25-35) Mean Corpuscular Hemoglobin Concent 34 g/dL (31-37) Red Cell Distribution Width 14.7 % (11.5-14.5) Platelet Count 223 x10^3/uL (140-400) Neutrophils (%) (Auto) 49 % (31-73) Lymphocytes (%) (Auto) 39 % (24-48) Monocytes (%) (Auto) 10 % (0-9) Eosinophils (%) (Auto) 2 % (0-3) Basophils (%) (Auto) 0 % (0-3) Neutrophils # (Auto) 3.1 x10^3uL (1.8-7.7) Lymphocytes # (Auto) 2.5 x10^3/uL (1.0-4.8) Monocytes # (Auto) 0.6 x10^3/uL (0.0-1.1) Eosinophils # (Auto) 0.1 x10^3/uL (0.0-0.7) Basophils # (Auto) 0.0 x10^3/uL (0.0-0.2) Sodium Level 142 mmol/L (136-145) Potassium Level 4.1 mmol/L (3.5-5.1) Chloride Level 104 mmol/L (98-107) Carbon Dioxide Level 29 mmol/L (21-32) Anion Gap 9 (6-14) Blood Urea Nitrogen 12 mg/dL (8-26) Creatinine 0.8 mg/dL (0.7-1.3) Estimated GFR (Cockcroft-Gault) 100.0 BUN/Creatinine Ratio 15 (6-20) Glucose Level 154 mg/dL (70-99) Calcium Level 8.8 mg/dL (8.5-10.1) Magnesium Level 1.9 mg/dL (1.8-2.4) Total Bilirubin 1.0 mg/dL (0.2-1.0) Aspartate Amino Transf (AST/SGOT) 17 U/L (15-37) Alanine Aminotransferase (ALT/SGPT) 35 U/L (16-63) Alkaline Phosphatase 51 U/L (46-116) Troponin I Quantitative < 0.017 ng/mL (0.000-0.055) Total Protein 6.6 g/dL (6.4-8.2) Albumin 3.6 g/dL (3.4-5.0) Albumin/Globulin Ratio 1.2 (1.0-1.7) Triglycerides Level 72 mg/dL (0-150) Cholesterol Level 140 mg/dL (0-200) LDL Cholesterol, Calculated 84 mg/dL (0-100) VLDL Cholesterol, Calculated 14 mg/dL (0-40) Non-HDL Cholesterol Calculated 98 mg/dL (0-129) HDL Cholesterol 42 mg/dL (40-60) Cholesterol/HDL Ratio 3.3 Lipase 1407 U/L (73-393) Glucose (Fingerstick) 185 mg/dL (70-99) Allergies: Coded Allergies: No Known Drug Allergies (Unverified , 03/12/18) Medications: Current Medications Medications (Trade) Dose Ordered Sig/Genaro Route PRN Reason Start Time Stop Time Status Last Admin Dose Admin Aspirin (Children'S Aspirin) 324 mg 1X ONCE PO 03/12/18 11:00 03/12/18 11:17 DC 03/12/18 11:48 Morphine Sulfate (Morphine Sulfate) 4 mg 1X ONCE IV 03/12/18 12:00 03/12/18 12:01 DC 03/12/18 11:59 Ondansetron HCl (Zofran) 4 mg 1X ONCE IV 03/12/18 12:00 03/12/18 12:01 DC 03/12/18 11:59 Sodium Chloride 1,000 ml @ 1,000 mls/hr 1X ONCE IV 03/12/18 13:45 03/12/18 14:44 DC 03/12/18 15:22 Acetaminophen (Tylenol) 650 mg PRN Q4HRS PRN PO FEVER 03/12/18 14:00 03/13/18 13:59 03/13/18 09:16 Iohexol (Omnipaque 300 Mg/ml) 75 ml 1X ONCE IV 03/12/18 14:00 03/12/18 14:04 DC 03/12/18 14:00 Amlodipine Besylate (Norvasc) 5 mg DAILY PO 03/13/18 09:00 03/13/18 09:13 Lisinopril (Prinivil) 20 mg DAILY PO 03/13/18 09:00 03/13/18 09:14 Regadenoson (Lexiscan) 0.4 mg 1X ONCE IV 03/13/18 10:00 03/13/18 10:01 DC 03/13/18 09:50 Imaging: Imaging: CXR Impression: Pulmonary hyperinflation suggestive of COPD. No definite infiltrate. RUQ US Impression: Mild fatty infiltration of the liver. Borderline liver size. Gallbladder is unremarkable with no evidence of cholelithiasis or findings to suggest cholecystitis. CT A/P IMPRESSION: 1. Urinary bladder distention. 2. Small 4 mm noncalcified pulmonary nodule in the right lung base, as per Fleischner Society recommendations no follow-up is necessary if low risk, but consider follow-up CT chest in 12 months if high risk. 3. Degenerative spondylosis with stenosis. 4. Minimal perinephric stranding, can be associated with mild inflammation versus chronic medical renal disease. The kidneys themselves appear intrinsically unremarkable. Echocardiogram <Conclusion> Technically difficult study. The left ventricular systolic function is normal. The Ejection Fraction is 55-60%. There is normal LV segmental wall motion. Doppler and Color Flow revealed trace tricuspid regurgitation. The PA pressure was estimated at 27 mmHg. There is no evidence of significant pericardial effusion. MPI (pending) PE: GEN: NAD HEENT: Atraumatic, PERRL LUNGS: CTAB HEART: RRR ABD: NABS, round, non-tender EXTREMITY: No edema SKIN: No rashes, no jaundice NEURO/PSYCH: A & O 3 A/P: A/P: Left-sided chest pain Elevated lipase - improved Heartburn CRC screen - none H/o heavy alcohol use/binge-drinking -- Pancreatitis - suspect alcohol-related. Currently asymptomatic from GI- standpoint. Continue workup per cardiology. Alcohol avoidance moving forward. Outpt colonoscopy - consider EGD as well w/ heartburn history. ROSA RAGLAND Mar 13, 2018 11:07
--- NOTE | 2018-03-13 11:14 | PDOC ---
CARDIO Progress Notes Date and Time Date of Service 03/13/2018 Time of Evaluation 1100 Subjective Subjective: No Chest Pain, No shortness of breath, No Palpitations, Other (no further recurrence of pain and SOA) Vitals Vitals Vital Signs Date Time Temp Pulse Resp B/P (MAP) Pulse Ox O2 Delivery O2 Flow Rate FiO2 03/13/18 10:55 97.8 100 20 141/73 (95) 96 Room Air 97.8 Weight Weight [ ] Input and Output Intake and Output Intake and Output 03/13/18 07:00 Intake Total 960 ml Balance 960 ml Intake Oral 960 ml # Voids 4 Laboratory Labs Laboratory Tests Test 03/12/18 16:31 03/12/18 17:07 03/12/18 19:30 03/12/18 20:42 Urine Collection Type Unknown Urine Color Yellow Urine Clarity Clear Urine pH 5.0 Urine Specific [place] >=1.030 Urine Protein Negative mg/dL (NEG-TRACE) Urine Glucose (UA) Negative mg/dL (NEG) Urine Ketones (Stick) Negative mg/dL (NEG) Urine Blood Negative (NEG) Urine Nitrite Negative (NEG) Urine Bilirubin Negative (NEG) Urine Urobilinogen Dipstick 0.2 mg/dL (0.2 mg/dL) Urine Leukocyte Esterase Negative (NEG) Urine RBC Rare /HPF (0-2) Urine WBC 0 /HPF (0-4) Urine Bacteria 0 /HPF (0-FEW) Glucose (Fingerstick) 107 mg/dL (70-99) 246 mg/dL (70-99) Troponin I Quantitative < 0.017 ng/mL (0.000-0.055) Test 03/13/18 05:10 03/13/18 07:00 White Blood Count 6.3 x10^3/uL (4.0-11.0) Red Blood Count 4.77 x10^6/uL (4.30-5.70) Hemoglobin 13.9 g/dL (13.0-17.5) Hematocrit 41.0 % (39.0-53.0) Mean Corpuscular Volume 86 fL (79-100) Mean Corpuscular Hemoglobin 29 pg (25-35) Mean Corpuscular Hemoglobin Concent 34 g/dL (31-37) Red Cell Distribution Width 14.7 % (11.5-14.5) Platelet Count 223 x10^3/uL (140-400) Neutrophils (%) (Auto) 49 % (31-73) Lymphocytes (%) (Auto) 39 % (24-48) Monocytes (%) (Auto) 10 % (0-9) Eosinophils (%) (Auto) 2 % (0-3) Basophils (%) (Auto) 0 % (0-3) Neutrophils # (Auto) 3.1 x10^3uL (1.8-7.7) Lymphocytes # (Auto) 2.5 x10^3/uL (1.0-4.8) Monocytes # (Auto) 0.6 x10^3/uL (0.0-1.1) Eosinophils # (Auto) 0.1 x10^3/uL (0.0-0.7) Basophils # (Auto) 0.0 x10^3/uL (0.0-0.2) Sodium Level 142 mmol/L (136-145) Potassium Level 4.1 mmol/L (3.5-5.1) Chloride Level 104 mmol/L (98-107) Carbon Dioxide Level 29 mmol/L (21-32) Anion Gap 9 (6-14) Blood Urea Nitrogen 12 mg/dL (8-26) Creatinine 0.8 mg/dL (0.7-1.3) Estimated GFR (Cockcroft-Gault) 100.0 BUN/Creatinine Ratio 15 (6-20) Glucose Level 154 mg/dL (70-99) Calcium Level 8.8 mg/dL (8.5-10.1) Magnesium Level 1.9 mg/dL (1.8-2.4) Total Bilirubin 1.0 mg/dL (0.2-1.0) Aspartate Amino Transf (AST/SGOT) 17 U/L (15-37) Alanine Aminotransferase (ALT/SGPT) 35 U/L (16-63) Alkaline Phosphatase 51 U/L (46-116) Troponin I Quantitative < 0.017 ng/mL (0.000-0.055) Total Protein 6.6 g/dL (6.4-8.2) Albumin 3.6 g/dL (3.4-5.0) Albumin/Globulin Ratio 1.2 (1.0-1.7) Triglycerides Level 72 mg/dL (0-150) Cholesterol Level 140 mg/dL (0-200) LDL Cholesterol, Calculated 84 mg/dL (0-100) VLDL Cholesterol, Calculated 14 mg/dL (0-40) Non-HDL Cholesterol Calculated 98 mg/dL (0-129) HDL Cholesterol 42 mg/dL (40-60) Cholesterol/HDL Ratio 3.3 Lipase 1407 U/L (73-393) Glucose (Fingerstick) 185 mg/dL (70-99) Physical Exam HEENT: Neck Supple W Full Motion Chest: Symmetric LUNGS: Clear to Auscultation Heart: S1S2, RRR (SR no significant ectopies overnight), murmurs (3/6 systolic murmur to EMMANUEL border) Abdomen: Soft N/T Extremities: No Edema, No Calf Tenderness Neurology: alert, oriented, follow commands Assessment Assessment 1. Chest pain: troponin series nml. no further recurrence overnight. EF and WM nml 2. Pancreatitis/Elevated lipase: peaked 2100s, likely related to ETOH binging 3. Undiagnosed COPD with continued tobaccoism: defer to PCP 4. Morbid obesity with suspected BEVERLY 5. Fatty liver disease 6. Binge alcohol use: weekly 10-12 beers in one sitting consumed <5 hours. Last event Sunday 7. HTN: controlled 8. DM2/HLP: BG uncontrolled, lipids on goal 9. Mild /TR Recommendations 1. Await MPI result. 2. Continue home ASA/lipitor 3. Wt loss. outpt BEVERLY workup, Routine exercise. Smoking cessation. Avoid ETOH binging. MANDA DUNCAN APRN Mar 13, 2018 11:14
--- NOTE | 2018-03-13 13:27 | RAD ---
MR#: [id number] Date of Study: 03/13/2018 Ordering Physician: MANDA DUNCAN, Referring Physician: MASOOD MARIE Tech: APPROVED REPORT Test Type: Pharmacological Stress Nurse/Tech: Zoya Manzano RN Test Indications: Chest Pain, elevated lipase Cardiac History: Family history,smoker, Diabetes, Hypertension Medications: See Electronic Medical Record Medical History: See Electronic Medical Record Resting ECG: SR Resting Heart Rate: 68 bpm Resting Blood Pressure: 144/76mmHg Pretest Chest Pain: No chest pain Nurse/Tech Notes S1,S2 and lungs are clear to auscultation. Consent: The procedure was explained to the patient in lay terms. Informed consent was witnessed. Jayant eout was entered into [employer]. History and Stress Test performed by Zoya Manzano RN Pharm. Details Pharmacologic stress testing was performed using 0.4mg per 5ml of regadenoson given intravenously ove r 7-10 seconds. POST EXERCISE Reason for Termination: Infusion complete Target HR: No Max HR: 93 bpm Max Blood Pressure: 162/58mmHg Blood Pressure response to exercise: Normal blood pressure response during stress. Heart Rate response to exercise: WNL Chest Pain: No. Arrhythmia: No. INTERPRETATION Stress EKG Conclusion: The resting EKG shows a sinus rhythm with a small septal Q wave and nonspecifi c ST-T wave changes. The stress EKG shows no significant changes from baseline. No EKG evidence us dressed induced ischemia. LV Perfusion Normal stress images. Wall Motion Preserved left ventricular systolic function with no regional wall motion abnormalities and an ejecti on fraction of 54%. Conclusion 1. No EKG evidence of stressed induced ischemia. 2. Nuclear imaging shows a normal stress scan with no evidence of ischemia or infarct. 3. Intact LV systolic function with no regional wall motion abnormalities and an ejection fraction of 54%. 4. Low to moderately low risk Lexiscan nuclear stress test. Signed by : Solitario Gutiérrez MD Electronically Approved : 03/13/2018 13:26:21
[2018-03-13 15:00] VITALS: BP 143/76
[2018-03-13] MEDS ORDERED: AMITRIPTYLINE HCL 10 MG TABLET. PO SCH (21:00)
[2018-03-13] MEDS ORDERED: ATORVASTATIN CALCIUM 20 MG TABLET PO SCH (21:00)
[2018-03-14] MEDS ORDERED: metFORMIN 500 MG TABLET PO SCH (17:00)
== END 2018-03-13 15:00 | disposition home or self-care (01) | DRG 439 ==
LOC: ER 10:46 → 5 SOUTH 14:57
PROVIDERS: ADMIT Family Medicine; ATTEND Family Medicine
DX: K85.90 Acute pancreatitis without necrosis or infection, unspecified (principal); Z68.41 Body mass index [BMI] 40.0-44.9, adult; E11.9 Type 2 diabetes mellitus without complications; R07.9 Chest pain, unspecified; E66.01 Morbid (severe) obesity due to excess calories; E78.5 Hyperlipidemia, unspecified; F17.210 Nicotine dependence, cigarettes, uncomplicated; I10 Essential (primary) hypertension; J44.9 Chronic obstructive pulmonary disease, unspecified; K21.9 Gastro-esophageal reflux disease without esophagitis; K76.0 Fatty (change of) liver, not elsewhere classified; I07.1 Rheumatic tricuspid insufficiency; M19.90 Unspecified osteoarthritis, unspecified site; R01.1 Cardiac murmur, unspecified; M47.9 Spondylosis, unspecified; N32.89 Other specified disorders of bladder; Z82.49 Family history of ischemic heart disease and other diseases of the circulatory system; Z83.3 Family history of diabetes mellitus; Z72.89 Other problems related to lifestyle
CPT/HCPCS: 36415; 71045; 74177; 76705; 78452; 80053; 80061; 81001; 82962; 83690; 83735; 84443; 84484; 85025; 93005; 93017; 93306; 96361; 96374; 96375; A9500; J2270; J2405; J2785; J7030; Q9967; 99285-25

== ENCOUNTER → 2019-03-19 | Outpatient (CLI) | payer OTHER ==
[~2019-03-19] MED LIST: AMIT10TA PO; AMLO5TAB10 PO; ATOR20TA58 PO; DULO30CA2 PO; IBUP-1060 PO; IOHEXOL 180 MG/ML 10 ML VIAL. ONE; LISI-334 PO; METF500T16 PO; PIOG30TA41 PO; SEMA1PEN SQ; methylPREDNISolone ACETATE 40 MG/ML VIAL. ONE; methylPREDNISolone ACETATE 80 MG/ML VIAL. ONE
--- NOTE | 2019-03-19 22:32 | PAIN ---
DATE OF SERVICE: 03/19/2019 INITIAL CONSULTATION FOR PAIN CLINIC CHIEF COMPLAINT: Low back and bilateral lower extremity pain, left greater than right. HISTORY OF PRESENT ILLNESS: This is a 58-year-old male who presents with history of pain in low back and left lower extremity with numbness in the leg for about 3 months. The patient reports no specific injury or accident he is aware of. He was lifting a tree limb that had fallen on his mobile home and was lifting that off of the structure, felt some significant pain in the low back and stopped lifting the tree, but the pain has been getting worse since that time and that was in December of this summer. The patient reports numbness in the left leg. The pain shifts across the low back, but is in both the legs, mostly in the posterior gluteus, posterior thighs, posterior calves, numbness on the top and bottom of the foot and burning sensation on the left side. The patient reports it is constant, sharp, stabbing, throbbing, shooting with tingling and numbness, radiating to the left lower extremity as well as the right, but worse on the left with a burning pain as well. The patient reports he cannot walk upstairs, it is too painful. 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 With lying down, he does report some relief, but it is awakening him from sleep at least once or twice a night. The patient reports it does not affect his bowel or bladder control, but does affect his ability to walk significantly and significant fatigability, especially of the left lower extremity. The patient reports no loss of complete function, but significant fatigability is noted. The patient did have MRI scan of the lumbar spine showing L5-S1 disk desiccation, mild disk bulging with approaching the descending left S1 nerve root, coursing towards the left lateral recess, no focal disk herniation or central stenosis, however. The patient reports a disability rating from 0-10, 10 being the worst, is a 9 with family home responsibilities and social activity, 8 with recreation, 10 with occupation, 6 with self-care and 3 with life support activities. PAST MEDICAL HISTORY: Significant for hypertension, type 2 diabetes, arthritis, hyperlipidemia. PREVIOUS SURGERY: Include ventral hernia repair. CURRENT MEDICATIONS: Include ____, atorvastatin, duloxetine, lisinopril, pioglitazone, metformin, ibuprofen. ALLERGIES: The patient has no known drug allergies. FAMILY HISTORY: Significant for diabetes and heart disease. SOCIAL HISTORY: The patient does not drink alcohol, does not smoke. Denies any illegal, illicit or recreational drugs. He is single, lives locally in [place], [place]. Works as a rubber factory worker. REVIEW OF SYSTEMS: The patient's review of systems is positive for those items present in history of present illness. All systems reviewed and are otherwise negative. It is full and complete on the patient's chart. PHYSICAL EXAMINATION: VITAL SIGNS: The patient's blood pressure 135/91, pulse 84, respirations 16, temperature is 98.1 degrees Fahrenheit, height is 5 feet 7 inches, weight is 305 pounds. GENERAL: The patient is awake, alert, oriented, appropriate, very pleasant demeanor. HEENT: Shows normocephalic, atraumatic. Extraocular movements are intact and symmetrical. Oral cavity: Mucous membranes moist and pink. Dentition is intact. NECK: Shows anterior throat supple without palpable lymphadenopathy noted. Swallow reflex symmetrical. CHEST: Shows normal on inspection. Breath sounds clear to auscultation bilaterally. HEART: Shows S1, S2 clear. No murmurs auscultated. ABDOMEN: Soft, nontender, nondistended. No palpable organomegaly is noted. No rebound or guarding demonstrated. BACK: Shows spine grossly in the midline. Normal appearing thoracic kyphosis, some minor flattening of lumbar lordotic curvature. Lumbar paraspinous muscle shows symmetrical on inspection, on palpation shows some moderate tenderness diffusely bilaterally, but only diffusely without specific radiation. EXTREMITIES: The patient's lower extremities show deep tendon reflexes at 2+ in the patellar, 1+ in tendo-calcaneus tendons. Motor exam is approximately 4 on a scale of 5 with left dorsiflexion, extension, 5/5 on the right. Peripheral pulses are 1+ posterior tibia. No peripheral edema is noted. Lower extremities are warm and dry to touch, equal in color and appearance. Straight leg raise noted to be negative for reproduction of radicular symptoms bilaterally. Gaenslen's and Ho's maneuvers are negative bilaterally as well. SKIN: The patient's skin shows warm and dry, good turgor. No edema. No sores, rashes or bruising throughout. IMPRESSION: 1. This is a 58-year-old male with approximate 3-month history of increasing low back pain, bilateral lower extremity in a radicular fashion, especially on the left following L5-S1 dermatomal distribution. 2. MRI scan of lumbar spine as noted. 3. Arthritis. 4. Obesity. 5. Hypertension. 6. Type 2 diabetes. PLAN: Options were discussed with the patient including conservative medical managements, physical therapies and interventional techniques. He would like to pursue interventional techniques. We discussed a lumbar epidural steroid injection using description as well as anatomical models to describe the procedure. Risks were then discussed including, but not limited to bleeding, infection, possibility of epidural hematoma, subsequent neurological compromise, dural puncture, headaches, spinal cord and/or nerve damage, side effects of steroid medication and poor results regarding pain control. The patient understands and wished to proceed. The patient will return to clinic in approximately 2 weeks for followup. He was counseled on return appointment, activity level and side effects to be aware of. DIAGNOSIS: Lumbar radiculopathy with lumbar degenerative disk disease. PROCEDURE: Lumbar epidural steroid injection, translaminar approach L5-S1 using C-arm fluoroscopic guidance under sterile prep and drape using local anesthetic. MEDICATION INJECTED: A total of 120 mg Depo-Medrol plus 10 mL of preservative-free normal saline and 2 mL of contrast. CONDITION AT DISCHARGE: Stable. The patient tolerated the procedure well, had no complications. LILLY CAMARILLO MD DR: NAUN/tea JOB#: [id number] / [id number] BELINDA Chan MD
== END ==
LOC: PNCL 09:36
PROVIDERS: ATTEND Anesthesiology
DX: M51.16 Intervertebral disc disorders with radiculopathy, lumbar region (principal); I10 Essential (primary) hypertension; E11.9 Type 2 diabetes mellitus without complications; E78.5 Hyperlipidemia, unspecified; E66.9 Obesity, unspecified; Z87.39 Personal history of other diseases of the musculoskeletal system and connective tissue; Z98.890 Other specified postprocedural states; Z79.84 Long term (current) use of oral hypoglycemic drugs
CPT/HCPCS: 62323; J1030; J1040; Q9965

== ENCOUNTER → 2019-04-02 | Outpatient (CLI) | payer OTHER ==
--- NOTE | 2019-04-02 17:36 | PAIN ---
DATE OF SERVICE: 04/02/2019 PROGRESS NOTE FOR PAIN CLINIC DIAGNOSIS: Lumbar radiculopathy with lumbar degenerative disk disease. HISTORY OF PRESENT ILLNESS: The patient is a 58-year-old male who returns for followup status post lumbar epidural steroid injection x 1. The patient reports about 50% improvement, doing much better, increased his activity with greater ease and comfort, walking greater distances, doing household activities, traveling with greater ease and comfort as well, sitting for longer periods. He reports he sleeps well at night, does not awaken him from sleep. The patient reports no new motor or sensory deficits. Still complains of pain in the low back and left lower extremity, but significantly less numbness and tenderness in the left leg, just has been in the low back and the patient reports tingling and burning at times with some left foot burning as well. The patient reports the pain is a 5 on a scale of 10 at its worst over the past week, 3 on average, ____ at its least and is a 3 today. The patient reports no new motor or sensory deficits, no new bowel or bladder incontinence or other complaints. PHYSICAL EXAMINATION: VITAL SIGNS: The patient's blood pressure is 126/83, pulse 96, respirations 16, temperature 98.1 degrees Fahrenheit, weight is 299 pounds. GENERAL: The patient is awake, alert, oriented, appropriate, very pleasant demeanor. HEENT: Shows normocephalic, atraumatic. Extraocular movements are intact and symmetrical. Oral cavity: Mucous membranes moist and pink. Dentition is intact. NECK: Shows anterior throat supple without palpable lymphadenopathy noted. Swallow reflex symmetrical. CHEST: Shows normal on inspection. Breath sounds clear to auscultation bilaterally. HEART: Shows S1, S2 clear. No murmurs auscultated. ABDOMEN: Soft, nontender, nondistended. No palpable organomegaly is noted. No rebound or guarding demonstrated. BACK: Shows spine grossly in the midline. Normal appearing thoracic kyphosis and some minor flattening of lumbar lordotic curvature. Lumbar paraspinous muscle shows symmetrical on inspection, on palpation shows some moderate tenderness diffusely bilaterally, but only diffusely without significant radiation. EXTREMITIES: The patient's lower extremities show deep tendon reflexes at 2+ in the patellar, 1+ tendo-calcaneus tendons. Motor exam is approximately 4 on a scale of 5 with left dorsiflexion, extension, 5/5 on the right. Peripheral pulses are 1+ in posterior tibia. No peripheral edema is noted bilaterally. Options were discussed with the patient. The patient's old chart was reviewed as his current medication regimen updated. Current review of systems updated today as well. We will proceed with a second in the series of lumbar epidural steroid injection today with fluoroscopic guidance. Risks were again discussed including, but not limited to bleeding, infection, possibility of epidural hematoma, subsequent neurological compromise, dural puncture, headaches, spinal cord and/or nerve damage, side effects of steroid medication and poor results regarding pain control. The patient understands and wished to proceed. The patient will return to clinic in approximately 2 weeks for followup. He was counseled on return appointment, activity level and side effects to be aware of. DIAGNOSES: Lumbar radiculopathy with lumbar degenerative disk disease. PROCEDURE: Lumbar epidural steroid injection, translaminar approach at L5-S1 level using C-arm fluoroscopic guidance under sterile prep and drape using local anesthetic. MEDICATION INJECTED: Received a total of 120 mg of Depo-Medrol plus 10 mL of preservative-free normal saline and 2 mL of contrast. CONDITION AT DISCHARGE: Stable. The patient tolerated procedure well, had no complications. LILLY CAMARILLO MD DR: NAUN/nts JOB#: [id number] / [id number]
== END ==
LOC: PNCL 09:01
PROVIDERS: ATTEND Anesthesiology
DX: M51.16 Intervertebral disc disorders with radiculopathy, lumbar region (principal)
CPT/HCPCS: 62323; J1030; J1040; Q9965

== ENCOUNTER → 2019-05-28 | Outpatient (CLI) | payer OTHER ==
--- NOTE | 2019-05-28 22:26 | PAIN ---
DATE OF SERVICE: 05/28/2019 PROGRESS NOTE FOR PAIN CLINIC DIAGNOSES: Lumbar radiculopathy with lumbar degenerative disk disease. HISTORY OF PRESENT ILLNESS: The patient is a 58-year-old male who returns for followup status post lumbar epidural steroid injection x 1. The patient reports about 60% improvement overall pain in the low back. His left leg still having some pain, but the back is doing much better, near 100% improvement with the back pain. The patient reports he has been increasing his activity with greater distance walking, doing work activities, household activities with greater ease and comfort and also traveling with better ease, but still some significant pain in the left leg, mostly in the posterior gluteus, posterior thigh, into the foot and ankle on the left side. The patient reports it is sharp and tight in the back, tingling and shooting, sometimes constant in the low back with activity, but overall doing much better. The patient reports no new motor or sensory deficits, no new bowel or bladder incontinence and he is eager to get back to work as well as he is feeling much better. PHYSICAL EXAMINATION: VITAL SIGNS: The patient's blood pressure is 125/77, pulse 111, respirations 18, temperature 98.1 degrees Fahrenheit, height is 5 feet 7 inches, weight is 308 pounds. The patient rates his pain as a 10 on a scale of 10 at its worst over the past week, 8 on average, 4 at its least and is a 4 today. GENERAL: The patient is awake, alert, oriented, appropriate, very pleasant demeanor. HEENT: Head shows normocephalic, atraumatic. Extraocular movements are intact and symmetrical. Oral cavity shows mucous membranes moist and pink. Dentition is intact. NECK: Shows anterior throat supple without palpable lymphadenopathy noted. Swallow reflex symmetrical. CHEST: Shows normal on inspection. Breath sounds clear to auscultation bilaterally. HEART: Shows S1, S2 clear. No murmurs auscultated. ABDOMEN: Soft, nontender, nondistended. No palpable organomegaly is noted. No rebound or guarding demonstrated. BACK: Shows spine grossly in the midline. Normal appearing thoracic kyphosis and lumbar lordotic curvature. Lumbar paraspinous muscle shows symmetrical on inspection, with palpation shows some moderate tenderness diffusely bilaterally going diffusely without significant radiation in the low lumbar distribution only. EXTREMITIES: The patient's lower extremities show deep tendon reflexes at 2+ in the patellar, 1+ tendo-calcaneus tendons. Motor exam is strong with 5/5 dorsiflexion, extension on the right and 4/5 on the left with dorsiflexion, extension. Quadriceps and hamstring flexion is 5/5 bilaterally. Peripheral pulses are 1+ posterior tibial. No peripheral edema is noted bilaterally as well. Options were discussed with the patient. The patient's old chart was reviewed as his current medication regimen updated. Current review of systems updated today as well. We will proceed with a third in the series of lumbar epidural steroid injection today with fluoroscopic guidance. Risks were again discussed including, but not limited to bleeding, infection, possibility of epidural hematoma, subsequent neurological compromise, dural puncture, headaches, spinal cord and/or nerve damage, side effects of steroid medication and poor results regarding pain control. The patient understands and wished to proceed. The patient will return to clinic in approximately 2 weeks for followup. He was counseled on return appointment, activity level and side effects to be aware of. DIAGNOSIS: Lumbar radiculopathy with lumbar degenerative disk disease. PROCEDURE: Lumbar epidural steroid injection, translaminar approach L5-S1 level using C-arm fluoroscopic guidance under sterile prep and drape using local anesthetic. MEDICATION INJECTED: A total of 120 mg Depo-Medrol plus 10 mL of preservative-free normal saline and 2 mL of contrast. CONDITION AT DISCHARGE: Stable. The patient tolerated the procedure well, had no complications. LILLY CAMARILLO MD DR: NAUN/tea JOB#: [id number] / [id number]
== END ==
LOC: PNCL 11:26
PROVIDERS: ATTEND Anesthesiology
DX: M51.16 Intervertebral disc disorders with radiculopathy, lumbar region (principal)
CPT/HCPCS: 62323; J1030; J1040; Q9965

== ENCOUNTER → 2020-01-12 | Outpatient (CLI) | payer OTHER ==
[2019-09-23 11:00] VITALS: BP 123/83
[~2020-01-12] MED LIST changes: +ACET500T68 PO; +ACET650S19 PO; +AMIT25TA PO; +DOCU-153 PO; +DULO60CA45 PO; +EMPA25TA PO; +HYDR-2761 PO; -IOHEXOL 180 MG/ML 10 ML VIAL. ONE; +METH750T2 PO; +OXYC1TAB15 PO; -methylPREDNISolone ACETATE 40 MG/ML VIAL. ONE; -methylPREDNISolone ACETATE 80 MG/ML VIAL. ONE
[2020-01-12 09:43] LABS: BASO % 1 % (0-3); EOS # 0.1 x10^3/uL (0.0-0.7); EOS % 2 % (0-3); HEMATOCRIT 40.7 % (39.0-53.0); HEMOGLOBIN 13.2 g/dL (13.0-17.5); LYMPH # 2.4 x10^3/uL (1.0-4.8); LYMPH % 31 % (24-48); MEAN CORPUSCULAR HEMOGLOBIN 27 pg (25-35); MEAN CORPUSCULAR HGB CONC 33 g/dL (31-37); MEAN CORPUSCULAR VOLUME 82 fL (79-100); MONO # 0.6 x10^3/uL (0.0-1.1); MONO % 8 % (0-9); NEUT # 4.4 x10^3/uL (1.8-7.7); NEUT % 58 % (31-73); PLATELET COUNT 278 x10^3/uL (140-400); RED BLOOD COUNT 4.95 x10^6/uL (4.30-5.70); RED CELL DISTRIBUTION WIDTH 15.8 % (11.5-14.5); WHITE BLOOD COUNT 7.6 x10^3/uL (4.0-11.0)
[2020-01-12 09:50] LABS: ALBUMIN 3.9 g/dL (3.4-5.0); ALBUMIN/GLOBULIN RATIO 1.2 (1.0-1.7); CALCIUM 9.1 mg/dL (8.5-10.1); GFR 76.7; POTASSIUM 4.2 mmol/L (3.5-5.1); PROTHROMBIN TIME PATIENT 12.3 SEC (11.7-14.0); TOTAL BILIRUBIN 0.6 mg/dL (0.2-1.0); TOTAL PROTEIN 7.2 g/dL (6.4-8.2)
== END | disposition home or self-care (01) ==
LOC: SURGPAT 08:56
PROVIDERS: ATTEND Neurological Surgery
DX: Z01.818 Encounter for other preprocedural examination (principal); Z11.59 Encounter for screening for other viral diseases; M48.02 Spinal stenosis, cervical region; M47.12 Other spondylosis with myelopathy, cervical region; Z98.1 Arthrodesis status
CPT/HCPCS: 36415; 80053; 85025; 85610; 85730; 87641; U0003

== ENCOUNTER 2020-01-16 10:18 | Inpatient (IN) | payer OTHER ==
--- NOTE | 2020-01-14 11:22 | HP ---
ADMIT DATE: 01/16/2020 PREOPERATIVE HISTORY AND PHYSICAL DATE OF SURGERY: 01/16/2020 HISTORY OF PRESENT ILLNESS: The patient is a pleasant 59-year-old who had surgery in September of this year. Since then, he has noticed significant improvement in his neck and shoulder pain. He has also noticed improvement in his hand function, but he continues to have difficulty with the use of his hands. He says he feels as though he has continued leg weakness and difficulty walking with unsteadiness. He is falling. He rates his overall pain a 6/10. PAST MEDICAL HISTORY: Diabetes, headache, hypertension. PAST SURGICAL HISTORY: Hernia repair, ACDF C4-C5 09/2019. FAMILY HISTORY: Cancer, diabetes, heart disease, hypertension. SOCIAL HISTORY: Employed. Single. Quit smoking more than 1 year ago. Previously smoked 1 pack per day for 40 years. Drinks alcohol 1-2 times per month. ALLERGIES: No known drug allergies. CURRENT MEDICATIONS: Bucks, Aleve, amlodipine, lisinopril, pioglitazone, metformin, amitriptyline, Ozempic, atorvastatin. REVIEW OF SYSTEMS: A 12-point review of systems was obtained and is noncontributory except for that mentioned above. PHYSICAL EXAMINATION: NEUROSURGERY EXAMINATION: GENERAL APPEARANCE: Alert, pleasant, in no acute distress. HEAD: Normocephalic and atraumatic. SKIN: Warm and dry. NECK AND THYROID: Bzbv-qc-cctnbboc tenderness with palpation of posterior cervical region, well-healed incision. MUSCULOSKELETAL: Cervical paraspinal muscle bulk is normal, restricted range of motion of the lower cervical spine, normal range of motion of the upper extremities bilaterally. EXTREMITIES: No clubbing, cyanosis or edema. NEUROLOGIC: Alert and oriented x 3, normal recent and remote memory, strength 5/5 in bilateral upper and lower extremities, sensory was intact to light touch in the upper and lower extremities except for decrease in both of his hands diffusely as well as his legs and feet bilaterally, reflexes are present and symmetric and increased bilaterally in the triceps, knees and ankles with sustained clonus on the right and 3 beats of clonus on the left, slightly spastic unsteady gait. LABORATORY AND DIAGNOSTIC DATA: Imaging reviewed. I reviewed recent MRI scan. The severe stenosis at C4-C5 resolved following the ACDF. His general canal, however, is congenitally narrow extending from C3-C6 with moderate canal stenosis at C3-C4 and more severe canal stenosis at C4-C5. I felt there was a moderate stenosis at C5-C6 as well. There is myelomalacia within the spinal cord behind the body of C5. ASSESSMENT/ PLAN: Clearly, there has been improvement with the ACDF, however he continues to have difficulties and on imaging there is congenitally narrow canal with stenosis extending from C3-C6. I have recommended a posterior cervical laminectomy from inferior C2 through C6 with posterior instrumentation and facet fusion. I did speak with him about the surgery. We spoke about the technique rationale, risks, and expected postoperative course. He has been cautioned about falling. He understands and he would like to proceed. We will make the arrangements. ROBERT JIMENEZ MD DR: BROOKS/tea JOB#: [id number] / [id number] TANISHA
[2020-01-16] VITALS (8 sets, daily range): BP systolic 118–151; BP diastolic 62–89
[~2020-01-16] VITALS: Ht 170.2 cm; Wt 138.2 kg
[~2020-01-16 10:18] MED LIST changes: +BACITRACIN 50,000 UNIT in IV NORMAL SALINE 1000ML BAG 1,000 ML IRR ONE; +BUPIVACAINE-EPI 0.5%-1:200000 MPF 30 ML VIAL. ONE; -DOCU-153 PO; +GELATIN SPONGE SIZE 100. ONE; +INSULIN LISPRO 100 UNIT/ML 3ML VIAL for OP,RR ONLY. SQ PRN; +IV RINGERS,LACTATED 1000ML 1,000 ML IV SCH; +KETOROLAC 60 MG/2 ML VIAL. ONE; +LIDOCAINE 1% PF 2 ML VIAL. ID PRN; +ONDANSETRON PF 4 MG/2 ML VIAL. IV PRN; -OXYC1TAB15 PO; +PROCHLORPERAZINE 10 MG/2 ML VIAL. IV PRN; +THROMBIN TOPICAL 20,000 UNIT SPRAY.SYRN KIT TP ONE; +ceFAZolin SODIUM 3 GM in IV DEXTROSE 5% 100ML 100 ML IV PRN; +fentaNYL PF VIAL 100 MCG/2 ML VIAL IV PRN
[2020-01-16] MEDS ORDERED: DEXAMETHASONE SOD PHOS 20 MG/5 ML VIAL. ONE (11:17)
[2020-01-16] MEDS ORDERED: PROPOFOL 10 MG/ML (20ML) VIAL. IV ONE (11:17)
[2020-01-16] MEDS ORDERED: ONDANSETRON PF 4 MG/2 ML VIAL. ONE (11:17)
[2020-01-16] MEDS ORDERED: LIDOCAINE 2% PF 5 ML VIAL. ONE (11:17)
[2020-01-16] MEDS ORDERED: ROCURONIUM 50 MG/5 ML VIAL. ONE (11:18)
[2020-01-16] MEDS ORDERED: SUCCINYLCHOLINE 200 MG/10 ML VIAL. ONE (11:18)
[2020-01-16] MEDS ORDERED: fentaNYL PF VIAL 100 MCG/2 ML VIAL ONE ×3 (11:19→17:50)
[2020-01-16] MEDS ORDERED: MIDAZOLAM HCL/PF 2 MG/2 ML VIAL. ONE (11:19)
[2020-01-16] MEDS ORDERED: REMIFENTANIL 2 MG VIAL. IV ONE ×2 (11:20→14:42)
[2020-01-16] MEDS ORDERED: VASOPRESSIN 20 UNIT/ML VIAL. ONE ×2 (13:08→13:10)
[2020-01-16] MEDS: POTASSIUM CL 20MEQ-0.45% NACL 1,000 ML IV SCH ×2 (13:14→20:54)
[2020-01-16] MEDS ORDERED: MAGNESIUM HYDROXIDE 2,400 MG/30 ML ORAL.SUSP. PO PRN (13:15)
[2020-01-16] MEDS ORDERED: DEXTROSE 50% 25 GM / 50ML DISP.SYRIN. IV PRN (13:15)
[2020-01-16] MEDS ORDERED: CALCIUM CARBONATE 500 MG TAB.CHEW PO PRN (13:15)
[2020-01-16] MEDS ORDERED: fentaNYL PF VIAL 100 MCG/2 ML VIAL IVP PRN (13:15)
[2020-01-16] MEDS ORDERED: oxyCODONE/APAP 5/325 1 TAB TABLET PO PRN (13:15)
[2020-01-16] MEDS ORDERED: diphenhydrAMINE HCL 25 MG CAPSULE PO PRN (13:15)
[2020-01-16] MEDS ORDERED: ACETAMINOPHEN 325 MG TABLET. PO PRN (13:15)
[2020-01-16] MEDS ORDERED: MAG HYDROX/ALUMINUM HYD/SIMETH 30 ML ORAL.SUSP PO PRN (13:15)
[2020-01-16] MEDS ORDERED: 0.9 % SODIUM CHLORIDE 10 ML DISP.SYRIN. IV PRN (13:15)
[2020-01-16] MEDS ORDERED: NALOXONE 0.4 MG/ML VIAL. IV PRN (13:15)
[2020-01-16] MEDS ORDERED: DESFLURANE > 120 MINUTES IH ONE (13:20)
[2020-01-16] MEDS ORDERED: ceFAZolin SODIUM IV Push 1 GM VIAL. IVP SCH (14:00)
[2020-01-16] MEDS ORDERED: PROPOFOL 50 ML IV ONE ×3 (14:42→16:04)
[2020-01-16] MEDS ORDERED: PHENYLEPHRINE 10 MG/ML VIAL. ONE (14:45)
[2020-01-16] MEDS ORDERED: NEOSTIGMINE METHYLSULFATE 5 MG/5 ML SYRINGE. ONE (14:58)
[2020-01-16] MEDS ORDERED: MORPHINE SULFATE 2 MG/ML VIAL. ONE (17:52)
[2020-01-16] MEDS: fentaNYL PF VIAL 100 MCG/2 ML VIAL IV PRN ×2 (18:04→18:14)
[2020-01-16] MEDS: MORPHINE SULFATE 2 MG/ML VIAL. IV PRN ×2 (18:11→18:22)
[2020-01-16] MEDS ORDERED: HYDROmorphone 2 MG/ML VIAL ONE (18:31)
[2020-01-16] MEDS: HYDROmorphone 2 MG/ML VIAL IV PRN ×4 (18:32→19:36)
[2020-01-16] MEDS: DOCUSATE SODIUM 100 MG CAPSULE. PO SCH (20:53)
[2020-01-16] MEDS ORDERED: AMITRIPTYLINE HCL 25 MG TABLET. PO SCH (21:00)
[2020-01-16] MEDS: metFORMIN 500 MG TABLET PO SCH (21:00)
[2020-01-16] MEDS: ceFAZolin SODIUM IV Push 1 GM VIAL. IVP SCH (21:19)
[2020-01-16] MEDS: METHOCARBAMOL 750 MG TABLET PO PRN (21:23)
[2020-01-17] MEDS: oxyCODONE/APAP 5/325 1 TAB TABLET PO PRN ×3 (00:39→09:51)
[2020-01-17 00:45] VITALS: BP 104/70
[2020-01-17 03:00] VITALS: BP 146/75
[2020-01-17] MEDS: ceFAZolin SODIUM IV Push 1 GM VIAL. IVP SCH ×2 (05:15→12:48)
[2020-01-17 07:59] VITALS: BP 140/72
[2020-01-17] MEDS ORDERED: NON FORMULARY ITEM (Empagliflozin (Jardiance) 25 MG) PO SCH (09:00)
[2020-01-17] MEDS ORDERED: PIOGLITAZONE 15 MG TABLET. PO SCH (09:00)
[2020-01-17] MEDS ORDERED: DULoxetine HCL 30 MG CAPSULE.DR PO SCH (09:00)
[2020-01-17] MEDS ORDERED: LISINOPRIL 20 MG TABLET PO SCH (09:00)
[2020-01-17] MEDS ORDERED: amLODIPine BESYLATE 5 MG TABLET PO SCH (09:00)
[2020-01-17] MEDS: DOCUSATE SODIUM 100 MG CAPSULE. PO SCH (09:50)
[2020-01-17] MEDS: metFORMIN 500 MG TABLET PO SCH (09:50)
[2020-01-17] MEDS ORDERED: OXYC1TAB15 PO (11:06)
[2020-01-17] MEDS ORDERED: METH750T2 PO (11:06)
[2020-01-17] MEDS ORDERED: DOCU-153 PO (11:06)
--- NOTE | 2020-01-17 11:07 | DISCH ---
DISCHARGE INSTRUCTIONS Condition on Discharge Condition on Discharge: Stable Activity After Discharge Activity Instructions for Disc: Activity as tolerated, Avoid exertion Bathing Instructions: Shower-keep dressing dry, No Tub Bath until see Lifting Instructions after Dis: No heavy lifting, No pulling or pushing, Do not lift >10 pounds Exercise Instruction after Dis: Progress as tolerated Driving Instructions after Dis: Do not drive, No driving for 2 weeks Weight Bearing Status after Di: No restrictions Diet after Discharge Diet after Discharge: Diabetic No Calorie Level Additional Diet Restrictions: resume home diet Diet Texture: Regular Swallowing Supervision: None needed Wound Incision Care Wound/Incision Care: Ice to area for comfort, May get incision wet Other wound/incision instructi: change dressing daily , keep dry, no soaking with shower Checks after Discharge Checks after discharge: Check blood press - daily, Check blood sugar, ac/hs, Check your Temp as needed, Weigh Yourself Daily Contacting the DRMike after DC Call your doctor for: Concerns you may have Follow-Up Follow up with: Dr. Greenberg's nurse in 2 weeks [phone] Treatment/Equipment after DC Adaptive Equipment Issued: ROBERT Campa MD Jan 17, 2020 11:07
[2020-01-17 11:59] VITALS: BP 128/73
[2020-01-17] MEDS: METHOCARBAMOL 750 MG TABLET PO PRN (12:46)
--- NOTE | 2020-01-17 14:18 | NUR ---
Pt discharged home with self care. Discharge instructions and prescriptions discussed. Pt verbalized understanding. IV removed. Dressing CDI on neck/upper back. Belongings were packed by pt and family. No further needs at this time.
[2020-01-17] MEDS ORDERED: ATORVASTATIN CALCIUM 20 MG TABLET PO SCH (21:00)
--- NOTE | 2020-01-20 18:06 | PATHOLOGY ---
[facility] Accession Number: [id number] . 01 Material submitted: . vertebral column - CERVICAL DECOMPRESSION . 01 Clinical history: . Cervical stenosis, arthrodesis status . 02 Diagnosis: Segment of fibrocartilaginous, fibroadipose, and skeletal muscle tissue and bone, cervical decompression: - Focal degenerative changes of fibrocartilaginous tissue. LBQ 01/20/2020 1613 Local . 02 Comment: There is no evidence of an acute inflammatory process or malignancy. (JPM/db; 01/20/2020) . 02 Electronically signed: . Yogesh Head MD, Pathologist NPI- [id number] . 01 Gross description: . The specimen is received in formalin, labeled "Bibtyrone Soliz Jr., cervical decompression". Received is a segment of pale cavanaugh bone with attached red-brown gritty, fibrous tissue measuring 6.3 x 2.4 x 1.6 cm in greatest dimensions. The specimen is submitted representatively in cassette A1, following light decalcification. (CAA; 01/19/2020) QAC/QAC 01/19/2020 1624 Local . 02 Pathologist provided ICD-10: M50.30 . 02 CPT . 338094, [id number] Specimen Comment: A courtesy copy of this report has been sent to [phone], [phone] Specimen Comment: [id number] Specimen Comment: Report sent to / DR NELSON Performed at: 01 [facility] [address], [place] [id number] MD Lowell Duarte MD Phone: [phone] Performed at: 02 [facility] [address], [place] [id number] MD Yogesh Head MD Phone: [phone]
--- NOTE | 2020-01-23 12:41 | OP ---
DATE OF SURGERY: 01/16/2020 PREOPERATIVE DIAGNOSES: Cervical spinal stenosis, C3 through C6, with cervical myelopathy. POSTOPERATIVE DIAGNOSES: Cervical spinal stenosis, C3 through C6, with cervical myelopathy. OPERATION PERFORMED: Cervical laminectomy C3 through C6 with facet instrumentation and facet fusion C3 through C6. The operation was done with multimodality monitoring including EMG, SSEP, motor evoked potentials. We also used fluoroscopy, microscopic dissection. TWISTING FRAME OPERATOR: RACHEL Pearson assisted with the surgery. She assisted with the exposure, laminectomy, instrumentation and closure. OPERATIVE INDICATIONS: The patient is a pleasant 59-year-old man who few months ago underwent an anterior cervical diskectomy and fusion for cervical stenosis. At that time, he had in addition to diffuse cervical spinal stenosis there was a focal disk herniation with severe compression of the cord and he underwent surgery and that problem was relieved. He improved very significantly, but continued to have difficulties with balance and numbness in his hands, which has became more active, became more apparent. After reviewing his films, I have recommended cervical laminectomy. I spoke with him about that surgery and the risks. He understood and he wished to go ahead. DESCRIPTION OF PROCEDURE: Following general endotracheal anesthesia, the patient was positioned prone in Blakely pins on the Enrrique table. His posterior cervical region was then clipped, prepped and draped in the standard fashion. ANNA hose and AV impulse boots were applied for DVT prophylaxis. A microscope was draped. Fluoroscopy was draped and brought into the field. Monitoring was established. Ancef 3 grams was given less than 1 hour prior to initiation of the surgery. Using fluoroscopic guidance, a midline posterior incision was made from C2 through C7, dissected down through skin and subcutaneous tissue, reflected the paraspinal muscles laterally. I then drilled into the posterior aspect of the pedicle of the facets using standard landmarks of C3, C4, C5 and C6 bilaterally. I then drilled and placed screws and then a kwan construct was then placed and the system was torqued bilaterally. I did excoriate the facets at this point, I then brought in the microscope and using the high speed air drill, I drilled a trough on the left and right sides extending from C3 through C6. I freed up the ligamentum flavum gently from inferiorly to superiorly and lifted away in a single unit the lamina and spinous processes of C6, C5, C4 and C3. I did use the Kerrison to trim superiorly to the inferior aspect of C2 and then inferiorly to the superior aspect of C7. Hemostasis was excellent. I irrigated copiously. I did take small pieces of bone from the lamina and packed it into the facets bilaterally. At this point, I had an excellent decompression. I irrigated copiously with antibiotic solution. I removed the retractors, obtained hemostasis in the muscle and I closed the wound in layers with absorbable suture and the skin was closed with skin joanna. The operation went very well. The patient awakened uneventfully, taken to recovery room in excellent condition with normal strength. I was quite pleased with the surgery. ROBERT JIMENEZ MD DR: BROOKS/tea JOB#: [id number] / [id number]
== END 2020-01-17 13:30 | disposition home or self-care (01) | DRG 472 ==
LOC: OPSVCIP 10:18 → 4 NORTH 20:00
PROVIDERS: ADMIT Neurological Surgery; ATTEND Neurological Surgery
PROC: 00NW0ZZ Release Cervical Spinal Cord, Open Approach (ICD-10-PCS; 2020-01-16)
PROC: 4A11X4G Monitoring of Peripheral Nervous Electrical Activity, Intraoperative, External Approach (ICD-10-PCS; 2020-01-16)
PROC: 0RG20AJ Fusion of 2 or more Cervical Vertebral Joints with Interbody Fusion Device, Posterior Approach, Anterior Column, Open Approach (ICD-10-PCS; principal; 2020-01-16 12:00)
DX: M48.02 Spinal stenosis, cervical region (principal); M47.12 Other spondylosis with myelopathy, cervical region; E11.9 Type 2 diabetes mellitus without complications; I10 Essential (primary) hypertension; Z82.49 Family history of ischemic heart disease and other diseases of the circulatory system; Z83.3 Family history of diabetes mellitus; Z87.891 Personal history of nicotine dependence; Z98.1 Arthrodesis status
CPT/HCPCS: 36415; 76000; 82962; 86850; 86900; 86901; A7015; C1713; J0330; J0690; J1100; J1170; J1815; J1885; J2250; J2270; J2370; J2405; J2704; J2710; J3010; J3480; J3490; J7030; J7120; G0378